=== PATIENT | female | born 1965 | race Caucasian/White ===

== ENCOUNTER → 2022-11-16 08:39 | Outpatient (CLI) | payer OTHER, SELFPAY ==
[2022-11-16 19:51] LABS: Alanine Aminotransferase 33 IU/L (<35); Albumin Globulin Ratio 1.5 (1.0-2.8); Alkaline Phosphatase 79 U/L (38-126); Aspartate Aminotransferase 28 IU/L (14-36); BUN Creatinine Ratio 16.7 (6-22); Bilirubin Total 0.3 mg/dL (0.2-1.3); Blood Urea Nitrogen 16 mg/dL (7-17); Calcium 8.7 mg/dL (8.4-10.2); Carbon Dioxide 30 mmol/L (22-32); Chloride 101 mmol/L (98-107); Cholesterol 120 mg/dL (140-199); Estimated Glomerular Filt Rate > 60 mL/min (>60); Globulin 2.7 g/dL (1.7-4.1); Glucose 88 mg/dL (70-100); HDL Cholesterol 50 mg/dL (40-60); HEMOLYSIS < 15 (0-50); LDL Cholesterol Calculated 58 mg/dL (<100); Potassium 3.9 mmol/L (3.4-5.1); Sodium 136 mmol/L (137-145); Total Protein 6.7 g/dL (6.3-8.2); Triglycerides 60 mg/dL (35-150)
== END ==
PROVIDERS: PCP Physician Assistant; Visit Provider Physician Assistant
DX: G47.00 Insomnia, unspecified (principal); L30.9 Dermatitis, unspecified; M85.80 Other specified disorders of bone density and structure, unspecified site
CPT/HCPCS: 80053; 80061

== ENCOUNTER → 2023-01-04 14:41 | Outpatient (CLI) | payer OTHER, SELFPAY ==
--- NOTE | 2023-01-04 14:42 | DI.RAD.S_ITS ---
PROCEDURE: XR DEXA AXIAL SKELETON INDICATIONS: screen COMPARISON: None. FINDINGS: This blank DEXA report has been sent in error by the PACS system. The correct and complete report will be forthcoming in 1-2 days. Thank you for your patience and understanding. Dictated by: Camden Palmer M.D. on 01/04/2023 at 15:44 Approved by: Camden Palmer M.D. on 01/04/2023 at 15:44
--- NOTE | 2023-01-04 14:42 | DI.MG.S_ITS ---
BILATERAL DIGITAL SCREENING MAMMOGRAM 3D/2D WITH CAD: 01/04/2023 CLINICAL: Routine screening. Family history of breast cancer. No prior exams were available for comparison. Both breasts are heterogeneously dense, which may obscure small masses (category c / 51-75% glandular tissue). Current study was also evaluated with a Computer Aided Detection (CAD) system. No significant masses, calcifications, or other findings are seen in either breast. IMPRESSION: NEGATIVE There is no mammographic evidence of malignancy. A 1 year screening mammogram is recommended. Based on the Tyrer Cuzick model (a risk assessment model) the patient's lifetime risk is 16.8% and her 10 year risk is 5.2%. According to the ACR, ACS, and NCCN guidelines, an annual breast MRI exam along with mammogram is recommended if the patient's lifetime risk is 20% or greater. This exam was interpreted at Station ID: [id number]. NOTE: For mammograms, a report in lay terms will be sent to the patient. Approximately 15% of breast malignancies will not be visualized mammographically. In the management of a palpable breast mass, a negative mammogram must not discourage biopsy of a clinically suspicious lesion. Electronically Signed By: Say gaspar/nilson:01/04/2023 17:27:24 letter sent: Normal Exam ACR BI-RADS Category 1: Negative [id number]
--- NOTE | 2023-01-04 15:02 | DI.DEXA.S_ITS ---
Bone Density Report Name: SIMON WHITLOCK Age: 57 Sex: Female Ethnicity: White Date of : 1965 Indication: screening for osteoporosis; parental hip fracture; Referring Provider: DENY ESCALERA Study: Bone densitometry was performed. Exam Date: January 04, 2023 Accession number: [id number] Bone Density: Region BMD T-score Z-score Classification AP Spine(L1-L4) 0.920 -1.2 -0.1 Osteopenia Femoral Neck (Left) 0.690 -1.4 -0.4 Osteopenia Total Hip (Left) 0.870 -0.6 0.1 Normal Femoral Neck (Right) 0.701 -1.3 -0.3 Osteopenia Total Hip (Right) 0.892 -0.4 0.3 Normal Total Hip Mean 0.881 -0.5 0.2 Normal World Health Organization criteria for BMD impression classify patients as: Normal (T-score at or above -1.0), Osteopenia (T-score between -1.0 and -2.5), or Osteoporosis (T-score at or below -2.5). 10-year Fracture Risk(1): Major Osteoporotic Fracture 13% Hip Fracture 0.5% Reported Risk Factors: [place] (), Neck BMD=0.690, BMI=25.1, parental fracture (1) FRAX(R) Version 3.08. Fracture probability calculated for an untreated patient. Fracture probability may be lower if the patient has received treatment. Impression: The patient's bone mass is within expected range for age, gender and ethnicity. The patient has an estimated ten-year risk of hip fracture of 0.5% and an estimated ten-year risk of major fracture of 13%, based on the WHO FRAX algorithm. The patient has risk factors, including: parental hip fracture. Discussion: BONE DENSITY IS WITHIN EXPECTED LIMITS FOR AGE, SEX AND RACE. Bone density is within expected limits for age, sex and race at all sites measured. The patient should follow a healthful lifestyle (good nutrition with adequate calcium and vitamin D, and appropriate weight-bearing exercise). Follow-Up: Consider repeating this study in 2 to 3 years to reassess this patient's status, or sooner if there is some new clinical indication. Reported by: KIZZY VILLAGRAN M.D. on 01/04/2023 3:36:00 PM.
== END ==
PROVIDERS: PCP Physician Assistant; Referring Provider Physician Assistant; Visit Provider Physician Assistant
DX: Z12.31 Encounter for screening mammogram for malignant neoplasm of breast (principal); M85.80 Other specified disorders of bone density and structure, unspecified site; Z80.3 Family history of malignant neoplasm of breast; Z13.820 Encounter for screening for osteoporosis
CPT/HCPCS: 77063; 77067; 77080

== ENCOUNTER → 2024-10-26 08:50 | Outpatient (CLI) | payer OTHER, SELFPAY ==
--- NOTE | 2024-10-26 08:51 | DI.MG.S_ITS ---
MM screening mammo BI: 10/26/2024. BI-RADS: 0 CLINICAL: 58-year old female for bilateral screening mammogram. Tyrer-Cuzick lifetime risk of 18.1%. No personal or first-degree family history of breast cancer. Current reported family history of breast cancer: maternal aunt. PRIOR EXAMS 01/04/2023 and 08/12/2021. MAMMOGRAPHY TECHNIQUE: 2D and 3D (tomosynthesis) digital mammographic views obtained, with additional images as needed for full coverage. Current study was also evaluated with a Computer Aided Detection (CAD) system. DENSITY C. The breasts are heterogeneously dense, which may obscure small masses. MAMMOGRAPHY FINDINGS Right: No suspicious mass, asymmetry, microcalcification, or other abnormality seen. Left: MLO only, Central, Middle depth: Asymmetry needing additional imaging evaluation. IMPRESSION: Right * No evidence of malignancy. Left (Asymmetry): MLO only, Central, Middle depth * Incomplete - asymmetry needing additional imaging evaluation. RECOMMENDATIONS Left: MLO only, Central, Middle depth * Further evaluation with diagnostic mammography and diagnostic ultrasound. Ultrasound to be performed only if needed. OVERALL ASSESSMENT CATEGORY BI-RADS-0: Incomplete - Need Additional Imaging Evaluation. ELECTRONICALLY SIGNED: Say Barajas M.D. on 10/26/2024 at 09:37:49 PM PT Interpreting Station ID: [id number]
== END ==
PROVIDERS: PCP Family Medicine; Referring Provider Family Medicine; Visit Provider Family Medicine
DX: Z12.31 Encounter for screening mammogram for malignant neoplasm of breast (principal); R92.8 Other abnormal and inconclusive findings on diagnostic imaging of breast; R92.333 Mammographic heterogeneous density, bilateral breasts
CPT/HCPCS: 77063; 77067

== ENCOUNTER → 2024-10-26 08:52 | Outpatient (CLI) | payer OTHER, SELFPAY | PROVIDERS: PCP Family Medicine; Referring Provider Family Medicine; Visit Provider Family Medicine | DX: N95.1 Menopausal and female climacteric states (principal); Z79.890 Hormone replacement therapy; M85.80 Other specified disorders of bone density and structure, unspecified site | CPT/HCPCS: 36415; 82523; 82627; 84402; 84403 ==

== ENCOUNTER → 2024-11-27 09:33 | Outpatient (CLI) | payer OTHER, SELFPAY ==
[2024-11-27 19:54] LABS: Add Manual Diff / Slide Review NO; Basophils Absolute Auto 100 /uL (0-100); Eosinophils Absolute Auto 100 /uL (0-450); Eosinophils Percent Auto 1.3 % (2-4); Hematocrit 39.9 % (36-46); Hemoglobin 13.6 g/dL (12.0-16.0); Lymphocytes Absolute Auto 1700 /uL (1100-4500); Lymphocytes Percent Auto 27.6 % (25-40); Mean Corpuscular HGB Conc 34.2 % (30-36); Mean Corpuscular Hemoglobin 31.5 PG (26-34); Mean Corpuscular Volume 92.3 fL (80-100); Monocytes Absolute Auto 300 /uL (0-900); Monocytes Percent Auto 4.8 % (3-14); Neutrophils Absolute Auto 4000 /uL (1500-7000); Neutrophils Percent Auto 65.3 % (50-75); Platelet Count 230 X10^3/uL (150-400); Red Blood Cell Count 4.33 X10^6/uL (4.0-5.2); Red Cell Distribution Width 13.2 % (11.6-14.8); White Blood Cell Count 6.1 X10^3/uL (4.5-11.0)
[2024-11-27 20:16] LABS: HEMOLYSIS < 15 (0-50); Iron 55 ug/dL (37-170)
[2024-11-27 20:19] LABS: Alanine Aminotransferase 27 IU/L (<35); Albumin 4.4 g/dL (3.5-5.0); Albumin Globulin Ratio 1.8 (1.0-2.8); Alkaline Phosphatase 108 U/L (38-126); Aspartate Aminotransferase 29 IU/L (14-36); BUN Creatinine Ratio 25.3 (6-22); Bilirubin Total 0.3 mg/dL (0.2-1.3); Blood Urea Nitrogen 23 mg/dL (7-17); Calcium 9.1 mg/dL (8.4-10.2); Carbon Dioxide 26 mmol/L (22-32); Chloride 101 mmol/L (98-107); Cholesterol 167 mg/dL (140-199); Estimated Glomerular Filt Rate > 60 mL/min (>60); Globulin 2.5 g/dL (1.7-4.1); Glucose 91 mg/dL (70-99); HDL Cholesterol 58 mg/dL (40-60); HEMOLYSIS < 15 (0-50); LDL Cholesterol Calculated 89 mg/dL (<100); Potassium 4.3 mmol/L (3.4-5.1); Sodium 135 mmol/L (137-145); Total Protein 6.9 g/dL (6.3-8.2); Triglycerides 100 mg/dL (35-150)
[2024-11-27 20:30] LABS: Vitamin D 25 Hydroxy (D3) 42.5 ng/mL (30.0-100.0)
[2024-11-27 20:34] LABS: Percent Iron Saturation 17 % (15-50); Total Iron Binding Capacity 325 ug/dL (265-497)
[2024-11-27 20:49] LABS: TSH w/ Reflex to FT4 2.48 uIU/mL (0.47-4.68)
[2024-11-27 20:52] LABS: Ferritin 25 ng/mL (11-264)
[2024-11-27 21:08] LABS: Vitamin B12 829 pg/mL (239-931)
[2024-11-27 21:53] LABS: Transferrin 274 mg/dL (206-381)
== END ==
PROVIDERS: PCP Family Medicine; Visit Provider Family Medicine
DX: K20.90 Esophagitis, unspecified without bleeding (principal); K21.9 Gastro-esophageal reflux disease without esophagitis; F51.01 Primary insomnia; M85.89 Other specified disorders of bone density and structure, multiple sites; Z13.6 Encounter for screening for cardiovascular disorders; R53.83 Other fatigue
CPT/HCPCS: 80053; 80061; 82306; 82607; 82728; 83540; 83550; 84443; 85025

== ENCOUNTER → 2025-01-10 13:20 | Outpatient (CLI) | payer OTHER, SELFPAY ==
--- NOTE | 2025-01-10 13:22 | DI.MG.S_ITS ---
MM diagnostic mammo unilat LT, US breast LT limited: 01/10/2025 BI-RADS: 2 CLINICAL: 59-year old female for left diagnostic mammogram and left diagnostic breast ultrasound that is a recall from screening on 10/26/2024. Tyrer-Cuzick lifetime risk of 18.2%. No personal or first-degree family history of breast cancer. Current reported family history of breast cancer: maternal aunt. PRIOR EXAMS 10/26/2024, 01/04/2023, 08/12/2021. MAMMOGRAPHY TECHNIQUE: 2D and 3D (tomosynthesis) digital mammographic views obtained, with additional images as needed for full coverage. Current study was also evaluated with a Computer Aided Detection (CAD) system. ULTRASOUND TECHNIQUE: TARGETED Left Breast Ultrasound: Real-time ultrasound exam was performed focused to area of clinical and/or imaging concern. Real-time quintanilla scale and color doppler imaging of the area of clinical interest was performed with image documentation. DENSITY Left: C. The breast is heterogeneously dense, which may obscure small masses. MAMMOGRAPHY FINDINGS Left (finding-1): MLO only, Central, Middle depth, measuring 0.7cm: There is an asymmetry seen only on one view. Left (finding-2): MLO only, Upper, Middle depth, measuring 0.7cm: There is an asymmetry seen only on one view. ULTRASOUND FINDINGS Left (finding-1): Outer at 3:00, 6 cm from nipple, measuring 0.6 x 0.3 x 0.6 cm. Previous report: MLO only, Central: Correlating with findings on mammogram, there is a simple anechoic cyst showing posterior acoustic enhancement. Left (finding-2): Upper Outer at 2:00, 6 cm from nipple, measuring 0.7 x 0.3 x 0.6 cm: Correlating with findings on mammogram, there are clustered microcysts. Left: Upper Outer Quadrant: Other incidental scattered benign clustered microcysts are noted in the left breast at 1 o'clock, 3 cm from the nipple, and at 3 o'clock, 5 cm from the nipple. IMPRESSION: Left * No evidence of malignancy with benign findings. RECOMMENDATIONS Bilateral * Annual screening mammography. COMMENTS: Findings and recommendations were conveyed to the patient during today's evaluation. OVERALL ASSESSMENT CATEGORY BI-RADS-2: Benign. The [employer] recommends annual screening mammography beginning at age 40 for women with average risk of breast cancer. ELECTRONICALLY SIGNED: Marleen Osorio M.D. on 01/10/2025 at 04:12:02 PM PT Interpreting Station ID: [id number]
[2025-01-14 17:12] LABS: ANA Screen, IFA Negative (.)
== END ==
PROVIDERS: PCP Family Medicine; Referring Provider Nurse Practitioner Adult Health; Visit Provider Nurse Practitioner Adult Health
DX: R92.8 Other abnormal and inconclusive findings on diagnostic imaging of breast (principal); L40.9 Psoriasis, unspecified; I73.00 Raynaud's syndrome without gangrene; K21.00 Gastro-esophageal reflux disease with esophagitis, without bleeding; N60.02 Solitary cyst of left breast; N64.89 Other specified disorders of breast
CPT/HCPCS: 36415; 76642; 77065; 85651; 86038; 86140; 86430; G0279

== ENCOUNTER 2025-02-12 07:32 | Day surgery (SDC) | payer OTHER, SELFPAY ==
--- NOTE | 2025-02-12 | PATH_ITS ---
[facility] Accession Number: [id number] No. of containers..02 Tissue . 01 Material submitted: . PART A: stomach - GASTRIC PART B: esophagus - ESOPHAGUS . 01 Diagnosis: A. STOMACH, BIOPSY: Gastric antral mucosa with mild chronic inflammation. Negative for Helicobacter organisms by immunohistochemistry. Negative for intestinal metaplasia. Negative for dysplasia or malignancy. . B. ESOPHAGUS, BIOPSY: Squamous epithelium with no diagnostic abnormality. Intraepithelial eosinophils are not increased. Negative for dysplasia and malignancy. [facility] 02/25/2025 1600 Local . 01 Electronically signed: . Mauricio Bui MD, PhD, Pathologist NPI- [id number] . 01 Gross description: . A. Received in formalin with two identifiers and gastric biopsy, are two soft cartwright tissue fragments measuring 0.3 to 0.4 cm in greatest dimension. Entirely submitted in cassette A1. B. Received in formalin with two identifiers and esophageal biopsy, is a single soft cartwright tissue fragment measuring 0.4 cm in greatest dimension. Entirely submitted in cassette B1. (AER:[id number]) /[facility] 02/22/2025 1947 Local . 01 Microscopic: . A. An immunohistochemical stain was performed to evaluate for Helicobacter organisms and is negative. The control stain showed appropriate reactivity. . * This test was developed and the performance characteristics were validated by [employer]. It has not been cleared or approved by the U.S. Food and Drug Administration. . . . . 01 Pathologist provided ICD-10: K29.70, K21.9 . 01 CPT . 129872, 415033, R81499 Specimen Comment: A courtesy copy of this report has been sent to [phone] Performed at: [address] [address], [place], [place] [id number] MD Efrain Yoo MD Phone: [phone]
[2025-02-12] MEDS: LACTATED RINGERS 1,000 ML 42 ML IV (07:48)
[2025-02-12 07:54] VITALS: BP 131/82; PULSE 92; RESP 16; TEMP 37; O2SAT 98
--- NOTE | 2025-02-12 08:36 | PM.HP.IH.1 ---
History of Present Illness History of Present Illness Date Patient Seen: 02/12/25 Chief complaint: SDC Narrative: History of large colon polyps need for follow-up colonoscopy. Also severe chest pain when not on omeprazole. Risks, benefits, alternatives have been explained. [facility] Medical History (Updated 12/25/24 @ 17:39 by Shun Ravi MD) History of atypical nevus Onychomycosis Fractured lateral malleolus Inclusion cyst of vulva Menopausal syndrome on hormone replacement therapy Osteopenia Family history of osteoporosis Stress incontinence (female) (male) Social History Smoking Status: Never smoker alcohol intake: current substance use type: does not use Meds Home Medications and Allergies Home Medications ?Medication ?Instructions ?Recorded ?Confirmed ?Type albuterol sulfate 90 mcg/actuation 2 puff inhalation Q6H PRN 11/16/22 02/12/25 History aerosol inhaler shortness of breath or wheezing progesterone micronized 100 mg 100 mg PO BEDTIME 90 days #90 caps 01/27/24 02/12/25 Rx capsule (Prometrium) estradiol 0.0375 mg/24 hr 1 patch transdermal 2XW #16 ea 03/20/24 02/12/25 Rx semiweekly transdermal patch (Vivelle-Dot) estradiol 2 mg (7.5 mcg/24 hour) 1 vag ring vaginal [id number] #1 ea 03/20/24 02/12/25 Rx vaginal ring (Estring) azelastine 137 mcg (0.1 %) nasal 2 spray intranasal BID Allergies, 04/10/24 02/12/25 Rx spray chronic rhinitis #30 mL fluticasone propionate 110 1 puff inhalation BID #12 grams 04/10/24 02/12/25 Rx mcg/actuation HFA aerosol inhaler ipratropium bromide 21 mcg (0.03 2 spray intranasal TID #30 mL 04/10/24 02/12/25 Rx %) nasal spray amlodipine 2.5 mg tablet 2.5 mg PO DAILY #90 tabs 12/25/24 02/12/25 Rx Held on 02/12/25. Instructions: does not work omeprazole 20 mg capsule,delayed 20 mg PO BID 12/25/24 02/12/25 History release clobetasol 0.05 % topical cream 1 applic topical BID PRN eczema 01/08/25 02/12/25 Rx #60 grams Allergies Allergy/AdvReac Type Severity Reaction Status Date / Time sulfamethoxazole (From AdvReac Intermediate Rash Verified 04/10/24 12:05 Bactrim) trimethoprim (From Bactrim) AdvReac Intermediate Rash Verified 04/10/24 12:05 Exam Vital Signs (past 8 hours): - 02/12/25 07:54 Temperature 98.6 F Pulse Rate 92 H Respiratory Rate 16 Blood Pressure 131/82 Pulse Oximetry 98 Oxygen Delivery Method Room Air Oxygen Delivery Method Room Air Narrative Exam Narrative: Oropharynx free of lesions Assessment & Plan Assessment & Plan narrative: History of large colon polyps need for follow-up colonoscopy. Risks, benefits, alternatives have been explained. Also history of severe chest discomfort when not on omeprazole. Rule out underlying esophagitis. Time-Based Coding :: [TOTAL MINUTES] spent with patient and on the chart (including review of chart, obtaining history, exam, reviewing outside data, placing orders, documenting exam and treatment plan, and counseling patient) on [DATE]. [employer] Document charge(s): No
--- NOTE | 2025-02-12 08:39 | PM.OP.EC ---
Operative Date/Time/Diagnoses Date of procedure: 02/12/25 Time of procedure: 09:28 Pre-op diagnosis: See indication and findings Post-op diagnosis: same Procedure & Clinicians Study performed: EGD and colonoscopy Same procedure(s) as scheduled: Yes Indications: Chest discomfort off omeprazole and history of large colon polyps Surgeon: Lamonte Quintanilla Anesthesia Type: Other Procedure Notes Procedure in detail: After informed consent was obtained the patient was placed in left lateral decubitus position. The video upper scope was placed into the oropharynx and with the patient's help swallowed into the esophagus. The esophagus stomach and duodenal were carefully examined. On withdrawal, retroflexed view the GE junction was performed. The scope was removed. The patient tolerated procedure well. Patient was then turned and the colonoscope substituted. The scope was placed in the rectum easily passed the cecum. Preparation was poor particularly on the right colon. On slow withdrawal mucosa was carefully examined. The scope was removed. The patient tolerated procedure well. Blood loss none Complications none Sedation mac Findings EGD 1. Possible distal esophageal erythema biopsies taken to rule out esophagitis particular eosinophilic esophagitis 2. Patchy gastric erythema in the antrum biopsies taken to rule out Helicobacter 3. Normal duodenal bulb and sweep Colonoscopy One. Poor prep particularly on the right side of the colon with seeds and other debris unable to be suctioned away. The scope however was passed to just above the IC valve. I would suggest that patient try to cut back on her omeprazole or even switch to famotidine 20 mg 1-2 p.o. b.i.d.. It certainly sounds as if she has symptoms from GE reflux. I would suggest that she also have repeat colonoscopy with a 2 day prep sometime over the next year.
[2025-02-12 09:23] VITALS: BP 110/66; PULSE 74; RESP 16; TEMP 36.1; O2SAT 100
[2025-02-12 09:28] VITALS: BP 114/71; PULSE 73; RESP 16; O2SAT 100
[2025-02-12 09:33] VITALS: BP 116/78; PULSE 74; RESP 16; O2SAT 100
[2025-02-12 09:38] VITALS: BP 117/71; PULSE 78; RESP 16; O2SAT 100
[2025-02-12 09:39] VITALS: BP 118/78; PULSE 74; RESP 16; O2SAT 100
== END 2025-02-12 10:23 | disposition home or self-care (01) ==
PROVIDERS: PCP Family Medicine; Referring Provider Internal Medicine Gastroenterology; Visit Provider Internal Medicine Gastroenterology
PROC: 0DJ08ZZ Inspection of Upper Intestinal Tract, Via Natural or Artificial Opening Endoscopic (ICD-10-PCS; CPT 43239; principal; 2025-02-12 08:45)
PROC: 0DJD8ZZ Inspection of Lower Intestinal Tract, Via Natural or Artificial Opening Endoscopic (ICD-10-PCS; CPT 45378; 2025-02-12 08:45)
DX: Z12.11 Encounter for screening for malignant neoplasm of colon (principal); Z86.0100 Personal history of colon polyps, unspecified; R07.89 Other chest pain; K29.50 Unspecified chronic gastritis without bleeding
CPT/HCPCS: 43239; G0105; J2704